=== PATIENT | female | born 1990 | race Caucasian/White ===

== ENCOUNTER → 2019-10-30 09:37 | Outpatient (CLI) | payer OTHER, SELFPAY ==
[2019-10-30 12:33] LABS: Progesterone Level 15.32 ng/mL (See Comment)
[2019-10-30 12:42] LABS: Prolactin 10.8 ng/mL; T4 Free Direct 1.08 ng/dL (0.76-1.46); Thyroid Stim Hormone (TSH) 1.58 uIU/mL (0.358-3.74)
== END ==
PROVIDERS: Visit Provider Obstetrics & Gynecology
DX: N93.9 Abnormal uterine and vaginal bleeding, unspecified (principal)
CPT/HCPCS: 36415; 84144; 84146; 84439; 84443

== ENCOUNTER → 2019-12-18 15:32 | Outpatient (CLI) | payer OTHER, SELFPAY ==
[2019-12-18 16:57] LABS: Absolute Lymphocyte Count 1.93 X10^3/uL (0.83-4.51); Absolute Neutrophil Count 2.8 X10^3/uL (2.0-7.7); Basophil# 0.02 X10^3/uL; Basophil% 0.4 % (0-1); Hematocrit 38.9 % (37-47); Lymphocyte # 1.93 X10^3/ul (4.0); Lymphocyte % 37.8 % (19-41); Mean Corp Hgb Conc 33.4 g/dL (32-36); Mean Corpuscular Hgb 30.4 pg (27.0-32.0); Mean Corpuscular Volume 91.1 fL (81-99); Mean Platelet Vol. 10.6 fl (6.2-12.0); Monocyte# 0.28 X10^3/uL; Monocyte% 5.5 % (0-10); NRBC Flagged by Analyzer 0 % (0-5); Neutrophil # 2.76 X10^3/uL (2.7-7.7); Neutrophil % 54.1 % (47-70); Platelet Count 287 K/mm3 (150-450); RBC Distribution Width CV 12.3 % (11.6-14.6); Red Blood Count 4.27 M/mm3 (4.2-5.4); White Blood Count 5.1 K/mm3 (4.4-11.0)
[2019-12-19 08:47] LABS: HIV - WCH Non-Reactive (Nonreactive); Hepatitis B Surface Antigen Non-Reactive (Nonreactive); Hepatitis C Antibody Non-Reactive (Nonreactive); Rubella IgG Reactive (Nonreactive)
[2019-12-20 01:21] LABS: Prenatal RPR NONREACTIVE (NONREACTIVE)
[2019-12-21 20:08] LABS: Chlamydia By Nucleic Acid AMP Negative (Negative)
[2019-12-21 21:52] LABS: Gonococcus By Nucleic Acid AMP Negative (Negative)
== END ==
PROVIDERS: Visit Provider Obstetrics & Gynecology
DX: Z34.81 Encounter for supervision of other normal pregnancy, first trimester (principal)
CPT/HCPCS: 36415; 85025; 86703; 86762; 86803; 87086; 87088; 87340; 87491; 87591

== ENCOUNTER → 2020-05-19 09:10 | Outpatient (CLI) | payer OTHER, SELFPAY ==
[2020-05-19 10:37] LABS: Hematocrit 36.7 % (37-47); Hemoglobin 12.4 g/dL (12.0-15.0); Mean Corp Hgb Conc 33.8 g/dL (32-36); Mean Corpuscular Hgb 31.4 pg (27.0-32.0); Mean Corpuscular Volume 92.9 fL (81-99); Mean Platelet Vol. 10.2 fl (6.2-12.0); Platelet Count 291 K/mm3 (150-450); RBC Distribution Width SD 44.5 fl (35.1-43.9); Red Blood Count 3.95 M/mm3 (4.2-5.4)
[2020-05-19 10:52] LABS: Glucose Challenge Gest 1H 50g 67 mg/dL (70-140)
== END ==
PROVIDERS: Visit Provider Obstetrics & Gynecology
DX: Z34.82 Encounter for supervision of other normal pregnancy, second trimester (principal)
CPT/HCPCS: 36415; 82950; 85027

== ENCOUNTER 2020-06-24 08:25 | Outpatient (CLI) | payer OTHER, SELFPAY ==
[2020-06-24 08:39] VITALS: BMI 33.9
[2020-06-24 08:47] VITALS: BP 133/71; PULSE 96; TEMP 35.9; O2SAT 98
--- NOTE | 2020-07-08 22:07 | OB.TRI.NOTE ---
HPI - General HPI Narrative FARHAD DORADO, is a 29 F 2 para 0010 @ 32 6/7 weeks gestation with decreased movement. PFSH Home Medications Fa 1 tab DAILY 06/24/20 [History Last Taken Unknown] famotidine [Pepcid] 20 mg PO BID 06/24/20 [History Last Taken Unknown] Allergy/AdvReac Type Severity Reaction Status Date / Time No Known Allergies Allergy Verified 06/24/20 08:45 NST FHR Rate Baby A Baseline: 140 Variability:: Moderate Accelerations:: 15 x 15 Decelerations:: None NST Reactive:: Yes FHR Category:: Category I Uterine Activity:: 0/10 Assessment & Plan (1) Decreased movement: QUALIFIERS: Fetus number: single or unspecified fetus Trimester: third trimester Qualified Code(s): O36.8130 - Decreased movements, third trimester, not applicable or unspecified (2) 32 weeks gestation of : PLAN: Reactive NST, Cat I FHR D/C home
== END 2020-06-24 09:20 | disposition home or self-care (01) ==
LOC: WPOUT 08:34 → WP 08:35
PROVIDERS: Referring Provider Obstetrics & Gynecology; Visit Provider Obstetrics & Gynecology
DX: O36.8130 Decreased fetal movements, third trimester, not applicable or unspecified (principal); Z3A.32 32 weeks gestation of pregnancy
CPT/HCPCS: 59025; 59050; 99218; G0378

== ENCOUNTER 2020-07-05 10:15 | Outpatient (CLI) | payer OTHER, SELFPAY ==
[2020-07-05 10:31] VITALS: BMI 34.0
[2020-07-05 10:34] VITALS: BP 129/81; PULSE 101
--- NOTE | 2020-07-05 11:08 | OB.TRI.HP_ITS ---
HPI - General HPI Narrative FARHAD DORADO, is a 29 F G2, P0 at 34 weeks and 3 days with JOAN: 08/13/2020 by LMP confirmed with 8-week ultrasound arrives with right-sided back pain that comes and goes. Patient has had this pain for several weeks but it has increased over time. Denies fevers, chills, chest pain, shortness of breath, nausea vomiting, right upper quadrant pain. Obstetric history: G1: SAB G2: Current Past medical history: Anxiety, depression, ADHD, asthma Medications: vitamin, promethazine Past surgical history: Colposcopy, D&C Allergies: Zoloft Family history: Aunt with breast cancer and aunt with cervical cancer Social history: Denies smoking, alcohol use, drug use Review of systems: Besides the above pertinent positives a full review of systems was performed and found to be negative Physical exam: Vitals: Blood pressure 129/81 pulse 101 General: Normal-appearing no acute distress HEENT: Normocephalic atraumatic no cervical of adenopathy Cardiac/respiratory: No use of accessory muscles, nonlabored breathing Abdomen: Overall soft, nontender, gravid. Negative Rovsing sign. No rebound tenderness or guarding. Overall patient with pain when movement is palpated. Uterus nontender. Back: Negative CVA tenderness bilaterally Pelvic exam: Per nursing cervical exam is closed thick and high Extremities: No peripheral edema normal peripheral pulses Psych: Normal affect normal demeanor nonpressured speech I performed bedside ultrasound: position transverse spine down head maternal left. Placenta fundal. MARYBEL subjectively normal. Noted for positive tone, movement, breathing. Biophysical profile 8 out of 8. At timing of ultrasound it was noted that with movement babies kicks at point of pain and timing of pain were noted. Assessment plan: 29-year-old G2, P0 at 34 weeks and 3 days arrives with right-sided pain no sign of appendicitis or pancreatitis with afebrile and negative exam findings. testing reassuring with ultrasound and heart rate tracing. Based on ultrasound findings pain related to movement, uterus otherwise nontender. position has been transverse for greater than a month. Pain likely secondary to position and persistent movement. Discussed exercise ball/birthing ball to sit for hip and spine positioning to improve chances for vertex position in the future. Discussed heating pad on back. Offered Flexeril if needed. Urine analysis to be sent, no signs of pyelonephritis with no fevers or CVA tenderness. To discharge home and follow-up on scheduled appointment 07/08/2020. [facility] Home Medications Fa 1 tab DAILY 06/24/20 [History Last Taken Unknown] famotidine [Pepcid] 20 mg PO BID 06/24/20 [History Last Taken Unknown] Allergy/AdvReac Type Severity Reaction Status Date / Time No Known Allergies Allergy Verified 06/24/20 08:45
[2020-07-05 11:56] VITALS: BP 121/65; PULSE 96
[2020-07-05 12:04] LABS: Mucous, Urine 0 SEEN /hpf (<or=2+); Red Blood Cells-Urine 0 SEEN /hpf (0-5); White Blood Cells 0 SEEN /hpf (0-5)
[2020-07-05 12:07] LABS: Color, Urine Yellow (Yellow); Glucose, Dipstick Normal (Normal); Ketone-Dipstick Negative (Negative); Leukocyte Esterase-Dipstick 25 /ul (Negative); Nitrite-Dipstick Negative (Negative); Occult Blood-Urine 250 /ul (Negative); Protein-Dipstick 15 mg/dl (Negative); Urine Bilirubin Dipstick Negative (Negative); Urine Clarity Clear (Clear); Urine Urobilinogen Normal (Normal)
[2020-07-05 12:27] LABS: Bacteria 1+ /hpf (None Seen); Squamous Epithelial Cells - UA 5-10 SEEN /hpf (5-10)
== END 2020-07-05 12:00 ==
LOC: WPOUT 10:26 → WP 10:27
PROVIDERS: Referring Provider Obstetrics & Gynecology; Visit Provider Obstetrics & Gynecology
DX: O26.893 Other specified pregnancy related conditions, third trimester (principal); M54.9 Dorsalgia, unspecified; Z3A.34 34 weeks gestation of pregnancy
CPT/HCPCS: 59025; 59050; 81001; 87086; 87088; 99218; G0378

== ENCOUNTER → 2020-07-16 17:12 | Outpatient (CLI) | payer OTHER, SELFPAY ==
[2020-07-05 10:31] VITALS: BMI 34.0
[2020-07-16 17:40] LABS: Hematocrit 38.6 % (37-47); Hemoglobin 13.2 g/dL (12.0-15.0); Mean Corp Hgb Conc 34.2 g/dL (32-36); Mean Corpuscular Hgb 30.9 pg (27.0-32.0); Mean Corpuscular Volume 90.4 fL (81-99); Platelet Count 325 K/mm3 (150-450); RBC Distribution Width CV 13.1 % (11.6-14.6); RBC Distribution Width SD 42.6 fl (35.1-43.9); Red Blood Count 4.27 M/mm3 (4.2-5.4); White Blood Count 8.2 K/mm3 (4.4-11.0)
[2020-07-16 17:49] LABS: Prothrombin Time (Protime)PT. 12.6 SECONDS (11.7-14.9)
[2020-07-16 18:14] LABS: Partial Thromboplast Time 27.4 Seconds (24.1-36.2)
[2020-07-16 18:33] LABS: AST(SGOT) 10 U/L (15-37); Alanine Aminotransfer ALT/SGPT 20 U/L (13-56); Creatinine, Serum 0.73 mg/dL (0.55-1.02); EST Glomerular Filtration Rate 100 mL/min (>60); Est Glom Filt Rate - Afr Amer 120 mL/min (>60); Uric Acid 3.8 mg/dL (2.6-6.0)
== END ==
LOC: LABSPEC 17:14 → LAB 17:26
PROVIDERS: PCP Family Medicine; Referring Provider Obstetrics & Gynecology; Visit Provider Obstetrics & Gynecology
DX: Z36.85 Encounter for antenatal screening for Streptococcus B (principal); O13.9 Gestational [pregnancy-induced] hypertension without significant proteinuria, unspecified trimester; Z3A.00 Weeks of gestation of pregnancy not specified
CPT/HCPCS: 36415; 82565; 84450; 84460; 84550; 85027; 85610; 85730; 87081

== ENCOUNTER 2020-08-06 00:15 | Inpatient (IN) | payer OTHER, SELFPAY ==
[2020-08-05] VITALS (7 sets, daily range): BP systolic 135–158; BP diastolic 71–87; PULSE 62–95; TEMP 36.2; O2SAT 98; BMI 34.9
[2020-08-05] MEDS: 0.9% Saline Lock 10 ML Syringe IV (23:05)
[2020-08-05 23:35] LABS: Protein, Urine (Random) 19.9 mg/dL (<11.9); Protein:Creat Ratio 337 mg/g CRE (0-200)
[2020-08-05 23:41] LABS: ALB/GLOB Ratio 0.7 RATIO (0.9-2.4); AST(SGOT) 9 U/L (15-37); Alanine Aminotransfer ALT/SGPT 13 U/L (13-56); Albumin, Serum 2.6 g/dL (3.2-5.0); Alkaline Phosphatase 85 U/L (45-117); Anion Gap 7 (5-15); BUN 11 mg/dL (7-18); BUN/Creat Ratio 15.3 RATIO (10-20); Calcium,Total 8.9 mg/dL (8.5-10.1); Chloride 106 mmol/L (98-107); Creatinine, Serum 0.72 mg/dL (0.55-1.02); EST Glomerular Filtration Rate 102 mL/min (>60); Est Glom Filt Rate - Afr Amer 123 mL/min (>60); Estimated Creatinine Clearance 99.56 ml/min; Globulin 3.9 g/dL (2.2-4.2); Glucose 75 mg/dL (74-106); LDH 131 U/L (84-246); Potassium 3.8 mmol/L (3.5-5.1); Protein, Total 6.5 g/dL (6.4-8.2); Sodium Level 138 mmol/L (136-145)
[2020-08-05] MEDS: Acetaminophen/Butalbital/Caffe 1 Tablet PO (23:47)
[2020-08-05 23:55] LABS: Absolute Neutrophil Count 5.3 X10^3/uL (2.0-7.7); Basophil# 0.03 X10^3/uL; Basophil% 0.4 % (0-1); Eosinophil# 0.13 X10^3/uL; Eosinophils% 1.6 % (0-5); Hematocrit 34.5 % (37-47); Hemoglobin 12.3 g/dL (12.0-15.0); Lymphocyte % 26.5 % (19-41); Mean Corp Hgb Conc 35.7 g/dL (32-36); Mean Corpuscular Hgb 31.5 pg (27.0-32.0); Mean Corpuscular Volume 88.5 fL (81-99); Mean Platelet Vol. 11.2 fl (6.2-12.0); Monocyte# 0.49 X10^3/uL; Monocyte% 5.9 % (0-10); NRBC Flagged by Analyzer 0 % (0-5); Neutrophil # 5.33 X10^3/uL (2.7-7.7); Neutrophil % 64.2 % (47-70); Platelet Count 283 K/mm3 (150-450); RBC Distribution Width CV 13.2 % (11.6-14.6); RBC Distribution Width SD 42.4 fl (35.1-43.9); White Blood Count 8.3 K/mm3 (4.4-11.0)
[2020-08-06] VITALS (46 sets, daily range): BP systolic 100–163; BP diastolic 56–97; PULSE 85–127; RESP 13–22; TEMP 35.9–37.1; O2SAT 96–100
--- NOTE | 2020-08-06 01:13 | PCM.HP.BLA ---
History and Physical Date of Admission: 08/06/20 Chief complaint: Headache History of present illness: 29-year-old G2, P0 at 39 weeks 0 days with JOAN: 08/13/2020 by LMP arrives with headache no visual changes. This headache has been unresolved with Tylenol and Fioricet. Denies chest pain, shortness of breath, nausea vomiting, right upper quadrant pain. Patient states good movement. Obstetric history: G1: SAB G2: Current Past medical history: Asthma, anxiety Medications: vitamin Past surgical history: Woodman teeth extraction Allergies: Zoloft Social history: Denies smoking, alcohol use, drug use Family history: Denies history DVT or PE Review of systems: Besides above pertinent positives a full review of systems was performed and found to be negative Physical exam: Vitals: Blood pressure 138/76 pulse 93 respiratory rate 16 temperature 97.7 SPO2 99% on room air General: Normal-appearing no acute distress HEENT: Normocephalic atraumatic no cervical lymphadenopathy Cardiac/respiratory: No use of accessory muscles, nonlabored breathing Abdomen: Soft, nontender, gravid Bedside ultrasound: Breech Extremities: No peripheral edema normal peripheral pulses Psych: Normal affect normal demeanor nonpressured speech Labs: White blood cell count 8.3 hemoglobin 12.3 hematocrit 34.5 platelets 283. Sodium 138 potassium 3.8 creatinine 0.72 AST 9 ALT 13 LDH 131. Urine protein creatinine ratio 0.33. O+ blood type Assessment and plan: 29-year-old G2, P0 at 39 weeks 0 days with preeclampsia with severe features based on unresolved headache. Patient with elevated blood pressures, nonpersistent severe range blood pressures, and proteinuria. Based on these findings educated the patient on preeclampsia with severe features and need for delivery. Based on breech presentation for primary section risk benefits alternatives discussed. Patient states understanding wish to proceed. All questions were answered consent was signed. We will start magnesium 6 g bolus at 2 g an hour, continue for 24 hours . For 2 g Ancef and 500 mg of azithromycin. Discussed with anesthesia.
[2020-08-06] MEDS: Magnesium Sulfate 4gm/100mL 4 GM/100 ML IV.SOLN. IV (01:20)
[2020-08-06] MEDS: Magnesium Sulfate 4gm/100mL 2 GM/50 ML IV.SOLN. IV (01:40)
[2020-08-06] MEDS: Cefazolin 2 GM in 0.9% Normal Saline 100 ML IV (01:40)
[2020-08-06] MEDS: Magnesium Sulfate 20 GM/500 ML BAG IV ×3 (01:50→19:55)
--- NOTE | 2020-08-06 02:25 | EX.PCM.OBRPT ---
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 Apgars 8/9. Normal uterus, tubes, and ovaries. Consent: Patient arrived with headache and elevated blood pressures along with proteinuria diagnosed with severe preeclampsia at term. Baby in breech presentation in need of primary section. Patient understands the risk of the procedure include but are not limited to visceral or vascular injury, prolonged hospitalization, blood loss and need for transfusion, reoperation. Patient states understanding wishes to proceed. All questions were answered consent was signed. Procedure: Patient was brought back to the OR where spinal anesthesia found to be adequate. 2 g of Ancef and 500 mg of azithromycin were given for infection prophylaxis. Patient was prepared and draped in a dorsal supine position with leftward tilt. A Pfannenstiel incision was made skin with a scalpel. The incision was carried down to the fascia with a scalpel. The fascia was excised and extended laterally. Inferior aspect of the fascia was grasped with a clamp and the underlying rectus and pyramidalis muscle were dissected off sharply with Pedro scissors. In a similar fashion the superior aspect the fascia was grasped and the underlying rectus muscle was dissected off sharply. The rectus muscle was dissected at the midline down to the level of pubic symphysis. Preperitoneal fatty tissue was noted and peritoneum was entered bluntly. Peritoneum was extended superiorly and inferiorly with good visualization of bladder. Bladder blade was inserted vesicouterine peritoneum was identified. Low transverse hysterotomy was made. Baby noted to be in breech presentation, delivered in standard breech fashion with ease. Cord was cut and clamped. Baby handed off to nursing. Placenta was delivered via cord traction and fundal massage. IV oxytocin was initiated to facilitate uterine contractions. Uterus was exteriorized and wiped out with dry laparotomy sponges in order to remove remaining placental membranes. Uterus was closed in continuous running fashion. Second layer was performed. Uterus placed back in the abdominal cavity. Good hemostasis was noted. Rectus muscles reapproximated with horizontal mattress sutures. Fascia was closed in continuous running fashion. Skin was closed in a subcuticular fashion. All counts correct x2. Patient tolerated procedure well was brought back to recovery in a stable condition.
[2020-08-06] MEDS: Lactated Ringers 1,000 ML 15 ML IV (02:33)
[2020-08-06] MEDS: Oxytocin 30 units/NS 500 ml 30 UNITS/500 ML IV.SOLN 167 UNITS IV (02:45)
[2020-08-06] MEDS: 0.9% Saline Lock 10 ML Syringe IV ×2 (03:13→21:11)
[2020-08-06] MEDS: Acetaminophen 500 MG Tablet 1000 MG PO ×3 (03:13→14:50)
[2020-08-06] MEDS: Ketorolac 30 MG/ML Syringe IV ×4 (03:13→21:11)
--- NOTE | 2020-08-06 05:21 | NURSING ---
see anesthesia flowsheet from OR for magnesium vital signs during initial 6 gram bolus. this RN took over performing vital signs for magnesium flowsheet when back in room after surgery at 0233.
--- NOTE | 2020-08-06 05:27 | NURSING ---
see anesthesia vital signs from OR
--- NOTE | 2020-08-06 05:30 | NURSING ---
see immediate post op assessment for urine amount. 800 cc clear, yellow urine.
[2020-08-06] MEDS: Senna/Docusate Sodium 1 Tablet PO (10:01)
[2020-08-06] MEDS: Enoxaparin 40 MG/0.4 ML Syringe SC (14:51)
--- NOTE | 2020-08-06 16:13 | NURSING ---
Called over to Dr. Evans office to discuss plan. Verbal order to d/c Mag at 0200- 24 hours post jakivieradry.
--- NOTE | 2020-08-06 19:30 | NURSING ---
Seizure pads on bed.
[2020-08-06] MEDS: Lactated Ringers 1,000 ML 50 ML IV (19:44)
--- NOTE | 2020-08-06 21:24 | NURSING ---
RN unable to give 2100 PO tylenol dose d/t x1 dose fioricet on 08/05 at 2347. If 2100 dose given, the amount exceeds 4000mg in 24 hours. Pharmacy called, next PO tylenol dose to be scheduled for 0000.
[2020-08-07] VITALS (11 sets, daily range): BP systolic 103–121; BP diastolic 57–68; PULSE 73–100; RESP 16–18; TEMP 36.3–36.8; O2SAT 96–98
[2020-08-07] MEDS: Acetaminophen 500 MG Tablet 1000 MG PO ×4 (00:02→18:03)
[2020-08-07] MEDS: Ibuprofen 600 MG Tablet PO ×4 (02:56→20:44)
[2020-08-07 05:42] LABS: Absolute Lymphocyte Count 1.38 X10^3/uL (0.83-4.51); Absolute Neutrophil Count 6.1 X10^3/uL (2.0-7.7); Basophil# 0.02 X10^3/uL; Basophil% 0.3 % (0-1); Eosinophil# 0.08 X10^3/uL; Hemoglobin 9.5 g/dL (12.0-15.0); Lymphocyte # 1.38 X10^3/ul (0.83-4.51); Lymphocyte % 17.3 % (19-41); Mean Corp Hgb Conc 33.9 g/dL (32-36); Mean Corpuscular Hgb 31.4 pg (27.0-32.0); Mean Corpuscular Volume 92.4 fL (81-99); Mean Platelet Vol. 10.3 fl (6.2-12.0); Monocyte# 0.43 X10^3/uL; Monocyte% 5.4 % (0-10); NRBC Flagged by Analyzer 0 % (0-5); Neutrophil # 6.05 X10^3/uL (2.7-7.7); Neutrophil % 75.5 % (47-70); Platelet Count 230 K/mm3 (150-450); RBC Distribution Width CV 13.6 % (11.6-14.6); RBC Distribution Width SD 45.5 fl (35.1-43.9); Red Blood Count 3.03 M/mm3 (4.2-5.4)
[2020-08-07 06:07] LABS: ALB/GLOB Ratio 0.7 RATIO (0.9-2.4); AST(SGOT) 11 U/L (15-37); Alanine Aminotransfer ALT/SGPT 10 U/L (13-56); Albumin, Serum 2.2 g/dL (3.2-5.0); Alkaline Phosphatase 69 U/L (45-117); Anion Gap 5 (5-15); BUN 10 mg/dL (7-18); BUN/Creat Ratio 12.3 RATIO (10-20); Calcium,Total 6.1 mg/dL (8.5-10.1); Chloride 104 mmol/L (98-107); Creatinine, Serum 0.81 mg/dL (0.55-1.02); EST Glomerular Filtration Rate 88 mL/min (>60); Est Glom Filt Rate - Afr Amer 106 mL/min (>60); Estimated Creatinine Clearance 88.49 ml/min; Globulin 3.2 g/dL (2.2-4.2); Glucose 82 mg/dL (74-106); LDH 196 U/L (84-246); Potassium 4.1 mmol/L (3.5-5.1); Protein, Total 5.4 g/dL (6.4-8.2); Sodium Level 136 mmol/L (136-145)
--- NOTE | 2020-08-07 07:05 | PCM.PN.OB ---
Subjective Subjective Pain is controlled, OOB, passing flatus. Reports lightheaded episode while toileting early this morning without recurrence. She ate food and it improved. c/o mild frontal headache. She denies rhinorrhea, sinus pressure, ear pain, vision changes or eye pressure. Objective Data Objective Data Vital Signs: Vital Signs Temp Pulse Resp BP Pulse Ox 97.8 F 85 18 108/57 L 98 08/07/20 04:15 08/07/20 04:15 08/07/20 04:15 08/07/20 04:15 08/07/20 04:15 Oxygen Delivery Method Room Air Weight: 92.4 kg Body Mass Index (BMI) 34.9 Intake & Output: Intake and Output for Last 24 Hours 08/05/20 08/06/20 08/07/20 23:59 23:59 23:59 Intake Total 3273.84 / 3323.84 717.50 / 717.50 Output Total 3705 / 3705 1000 / 1000 Balance -431.16 / -381.16 -282.50 / -282.50 Lab / Micro Data Result Diagrams: 08/07/20 05:35 08/08/20 06:05 Labs: Laboratory Results - last 24 hr 08/07/20 08/07/20 05:35 05:35 WBC 8.0 RBC 3.03 L Hgb 9.5 L Hct 28.0 L MCV 92.4 MCH 31.4 MCHC 33.9 D RDW Std Deviation 45.5 H RDW Coeff of Omkar 13.6 Plt Count 230 MPV 10.3 Immature Gran % (Auto) 0.500 Neut % (Auto) 75.5 H Lymph % (Auto) 17.3 L [place] % (Auto) 5.4 Eos % (Auto) 1.0 Baso % (Auto) 0.3 Absolute Neuts (auto) 6.1 Absolute Lymphs (auto) 1.38 Nucleated RBC % 0 Sodium 136 Potassium 4.1 Chloride 104 Carbon Dioxide 27.0 Anion Gap 5 BUN 10 Creatinine 0.81 Estim Creat Clear Calc 88.49 Est GFR (MDRD) Af Amer 106 Est GFR (MDRD) Non-Af 88 BUN/Creatinine Ratio 12.3 Glucose 82 Calcium 6.1 L* Total Bilirubin 0.30 AST 11 L ALT 10 L Alkaline Phosphatase 69 Lactate Dehydrogenase 196 Total Protein 5.4 L Albumin 2.2 L Globulin 3.2 Albumin/Globulin Ratio 0.7 L Micro: Microbiology 08/06/20 00:35 Mucosa - Nose SARS-CoV-2 Antigen (Rapid) - Final Physical Exam Const alert, oriented x3 and no apparent distress Resp normal respiratory effort, normal air movement and clear to auscultation bilaterally Cardio regular rate, regular rhythm, S1 normal heart sound and S2 normal heart sound GI normal to inspection, nondistended, normoactive bowel sounds, soft to palpation, non-tender and non-distended Manual OB Exam: other lochia scant Uterus Palpation: uterus fundus firm Extremity no calf tenderness Assessment & Plan (1) Delivery by section: PLAN: Routine postoperative care Rh positive, Rubella immune (2) Preeclampsia: PLAN: s/p magnesium Recently received tylenol for am headache If no improvement will give NSAID or Reglan No si/sx worsening preeclampsia and pt diuresing
[2020-08-07] MEDS: Senna/Docusate Sodium 1 Tablet PO (09:08)
[2020-08-07] MEDS: Enoxaparin 40 MG/0.4 ML Syringe SC (09:10)
[2020-08-08] VITALS (7 sets, daily range): BP systolic 118–136; BP diastolic 60–71; PULSE 67–75; RESP 18–20; TEMP 36.6–36.9; O2SAT 100
[2020-08-08] MEDS: Acetaminophen 500 MG Tablet 1000 MG PO ×3 (00:05→12:59)
[2020-08-08] MEDS: Ibuprofen 600 MG Tablet PO ×2 (02:32→09:28)
[2020-08-08 07:12] LABS: ALB/GLOB Ratio 0.7 RATIO (0.9-2.4); AST(SGOT) 11 U/L (15-37); Alanine Aminotransfer ALT/SGPT 10 U/L (13-56); Albumin, Serum 2.2 g/dL (3.2-5.0); Alkaline Phosphatase 64 U/L (45-117); Anion Gap 5 (5-15); BUN 11 mg/dL (7-18); BUN/Creat Ratio 16.2 RATIO (10-20); Calcium,Total 7.1 mg/dL (8.5-10.1); Chloride 108 mmol/L (98-107); Creatinine, Serum 0.68 mg/dL (0.55-1.02); EST Glomerular Filtration Rate 108 mL/min (>60); Est Glom Filt Rate - Afr Amer 131 mL/min (>60); Estimated Creatinine Clearance 105.41 ml/min; Globulin 3.2 g/dL (2.2-4.2); Glucose 73 mg/dL (74-106); LDH 187 U/L (84-246); Protein, Total 5.4 g/dL (6.4-8.2); Sodium Level 139 mmol/L (136-145)
--- NOTE | 2020-08-08 09:17 | DS.PCM_ITS ---
Providers Date of Admission: 08/06/20 Primary Care Physician: Dr. Amador Owens MD Reason For Visit: PRIMARY Diagnosis Discharge Diagnosis (1) Delivery by section: Status: Acute Plan: Routine postop care (2) Preeclampsia: Status: Acute Code(s): O14.90 - Unspecified pre-eclampsia, unspecified trimester Plan: Pt s/p magnesium 24h withno si/sx worsening Requests d/c home Will do home BPs tid, has sister who is slot service specialist assisting with care Si/sx preeclampsia reviewed Call to office on Tuesday to review BPs Medications at Discharge Home Medications Fa 1 tab DAILY 06/24/20 docusate sodium [Colace] 200 mg PO DAILY 08/05/20 ibuprofen 600 mg PO Q8H PRN PRN #30 tab 08/08/20 oxycodone 5 mg PO Q6H PRN 7 Days #20 tab 08/08/20 Hospital Course Operations section Procedures None Summary of Care Provided Hospital Course: 29yo admitted at 39 weeks gestation for scheduled section for breech presentation. The was uncomplicated, but she c/o headache and had elevated BP with proteinuria. She received IV magnesium x 24 hours. She continued to do well and was discharged to home on postoperative day #2. Physical Exam Const alert, oriented x3 and no apparent distress General Appearance: cooperative and comfortable HEENT normocephalic Resp Auscultation: clear to auscultation bilaterally Cardio regular rate, regular rhythm, S1 normal heart sound and S2 normal heart sound GI normal to inspection, nondistended, normoactive bowel sounds, soft to palpation and non-tender GI Narrative: incisional dressing c/d/i OB / External & Speculum: other Uterus Palpation: other OB Fundus firm and nontender Extremity no calf tenderness Weight / BMI Weight Weight: 92.4 kg Body Mass Index (BMI) 34.9 ABG / Lab / Microbiology Data Result Diagrams: 08/07/20 05:35 08/08/20 06:05 Laboratory: Laboratory Results - last 24 hr 08/08/20 06:05 Sodium 139 Potassium 4.0 Chloride 108 H Carbon Dioxide 26.0 Anion Gap 5 BUN 11 Creatinine 0.68 Estim Creat Clear Calc 105.41 Est GFR (MDRD) Af Amer 131 Est GFR (MDRD) Non-Af 108 BUN/Creatinine Ratio 16.2 Glucose 73 L Calcium 7.1 L Total Bilirubin 0.40 AST 11 L ALT 10 L Alkaline Phosphatase 64 Lactate Dehydrogenase 187 Total Protein 5.4 L Albumin 2.2 L Globulin 3.2 Albumin/Globulin Ratio 0.7 L Microbiology: Microbiology 08/06/20 00:35 Mucosa - Nose SARS-CoV-2 Antigen (Rapid) - Final D/C Instructions Discharge Diet: No restrictions Discharge Activity: May Shower May resume sexual activity in: 4-6 weeks Lifting Restricted to (Lbs): 10 Call your doctor if you observe: Fever of 101 or Higher, Using more than 1 pad per hour, Shortness of breath, Chest pain, Calf discomfort, Uncontrolled pain and - (Persistent or severe headache) Suture Line Care: Avoid Pulling/Pushing Remove Dressing in: 4 days Cleanse incision/area with: Soap & Water Please Follow Up With: Saima Cope MD When: 7-10 days for blood pressure check 6 weeks for visit Meaningful Use Info Meaningful Use Diagnoses (Choose all that apply): None applicable Discharge Plan Admission Admit Date/Time: 08/06/20 00:15 Primary Reason for Your Visit: section, preeclampsia Attending Provider: Prashant Gutiérrez Primary Care Provider: Amador Owens Instructions Patient Instructions: C Section Dc Additional Instructions / Restrictions: Call office for home BPs 160 systolic (top) or 110 diastolic (bottom number). Discharge Orders/Prescriptions Prescriptions: New ibuprofen 600 mg Tablet 600 mg PO Q8H PRN PRN (Reason: pain) Qty: 30 RF: 0 oxycodone 5 mg Tablet 5 mg PO Q6H PRN (Reason: severe pain) 7 Days Qty: 20 RF: 0 Continued Fa 1 tab DAILY RF: 0 docusate sodium [Colace] 100 mg Capsule 200 mg PO DAILY RF: 0 Discontinued famotidine [Pepcid] 20 mg Tablet 40 mg PO BID RF: 0 Referrals / Follow Up: Amador Owens MD [Primary Care Provider] - Disposition Disposition (needs filled in before D/C Order can be placed): Home, Self Care
[2020-08-08] MEDS: Senna/Docusate Sodium 1 Tablet PO (09:28)
[2020-08-08] MEDS: Enoxaparin 40 MG/0.4 ML Syringe SC (09:29)
--- NOTE | 2020-08-08 12:15 | CASEMGMT ---
Social Work Brief Assessment - Labor and Delivery Unit Patient [address]: [address] [place] [address], [place] [address] Phone number: [phone] Date of Referral/Notification: 08.06.2020 Time of Referral: [id number] Referred By: Dr. Prashant Gutiérrez Reason for Referral: Maternal history of depression and anxiety Date of Intervention: 08.08.2020 Time of Intervention: 1215 Informant: Medical record and mother of baby (MOB) Brittany Escobar; Father of baby (FOB) Ren Escobar also present for part of conversation. History: MOB is a 29 year old female, to the [facility] for the last 3 years. MOB is G2, P0 to 1 after delivering baby boy Milton Escobar on 07.10.2020. First was a SAB occurring in , and with subsequent D&C performed in the doctor's office. MOB with Pre-eclampsia this and treated with mag. Delivery of Milton via caesarian section. weight 2700 grams. Agpars 8 and 9 at 1 and 5 minutes of life. MOB has some college education and works at [employer]. FOB works at [employer]. MOB had history of depression, anxiety, and ADHD. MOB reports history of treatment with medications and that most of mood and anxiety issues stemmed from situational stress from a prior place of employment. No reports of substance use issues. No toxicology noted to have been performed this . MOB denies any domestic violence issues in this marriage. Assessment: Met with MOB and FOB together and then alone with the MOB. MOB and FOB both receptive to speaking with social contact worker, pleasant, cooperative and engaged in conversation. MOB and FOB report to have stable housing, transportation, all needed baby supplies, and to have adequate support. FOB will be at home to help, and then other family includes MOB's mom, sister, and FOB's mother. MOB reports first experience was a difficult one and increased some of MOB's anxiety. Educated family to decision and anxiety, resources provided, and reviewed risk factors. Information also provided on shaken baby prevention and safe sleeping. MOB and FOB indicated to have a positive connection with the baby. No voiced concerns by nursing staff regarding mother/child interactions or bonding. No voiced concerns with finances or need for additional social media marketing manager supports after home going. Plan: MOB and baby to home when ready. Resource information including local supports provided for mood and anxiety disorders. No further needs requested or indicated. -HAYDEN Davison, LOAD OUT WORKER
--- NOTE | 2020-08-08 18:52 | NURSING ---
1400- pt to take bp tid and call tuesday and give office update, to call office at any time she isnt feeling well. to follow up in the office in 2 weeks. pt voiced understanding.
== END 2020-08-08 14:00 | disposition home or self-care (01) | DRG 788 ==
LOC: WPOUT 00:19 → WP 00:20
PROVIDERS: Admitting Provider Obstetrics & Gynecology; PCP Family Medicine; Visit Provider Obstetrics & Gynecology
DX: O32.1XX0 Maternal care for breech presentation, not applicable or unspecified (principal); O14.14 Severe pre-eclampsia complicating childbirth; Z3A.39 39 weeks gestation of pregnancy; Z37.0 Single live birth
CPT/HCPCS: 59025; 59050; 76815; 80053; 82570; 83615; 84156; 85025; 86850; 86900; 86901; 87426; 99218; 99251; J7120; A4216; G0378; G0463; J2405

== ENCOUNTER 2021-05-27 07:59 | Outpatient (CLI) | payer OTHER, SELFPAY ==
[2021-05-27 10:16] LABS: Hematocrit 40.7 % (37-47); Hemoglobin 13.8 g/dL (12.0-15.0); Mean Corp Hgb Conc 33.9 g/dL (32-36); Mean Corpuscular Hgb 30.3 pg (27.0-32.0); Mean Corpuscular Volume 89.3 fL (81-99); Mean Platelet Vol. 10.7 fl (6.2-12.0); Platelet Count 313 K/mm3 (150-450); RBC Distribution Width SD 42.7 fl (35.1-43.9); Red Blood Count 4.56 M/mm3 (4.2-5.4); White Blood Count 4.2 K/mm3 (4.4-11.0)
[2021-05-27 10:37] LABS: Progesterone Level 0.28 ng/mL (See Comment); T3 Total - Triiodothyronine 1.25 ng/mL (0.6-1.81); Vitamin B12 355 pg/mL (211-911); Vitamin D,25 Hydroxy 46.4 ng/mL
[2021-05-27 10:38] LABS: Homocysteine 6.5 umol/L (3.2-10.7)
[2021-05-27 10:52] LABS: ALB/GLOB Ratio 0.9 RATIO (0.9-2.4); AST(SGOT) 31 U/L (15-37); Alanine Aminotransfer ALT/SGPT 44 U/L (13-56); Albumin, Serum 3.6 g/dL (3.2-5.0); Alkaline Phosphatase 55 U/L (45-117); Anion Gap 6 (5-15); BUN 14 mg/dL (7-18); CRP, High Sensitivity Cardiac 4.49 mg/L; Calcium,Total 8.7 mg/dL (8.5-10.1); Chloride 102 mmol/L (98-107); Cholesterol 252 mg/dL (200); Creatinine, Serum 0.88 mg/dL (0.55-1.02); EST Glomerular Filtration Rate 81 mL/min (>60); Est Glom Filt Rate - Afr Amer 97 mL/min (>60); Estradiol 26.1 pg/mL; Follicle Stimulating Hormone 5.9 mIU/mL; Globulin 3.9 g/dL (2.2-4.2); Glucose 84 mg/dL (74-106); High Density Lipoprotein 76 mg/dL; Iron 167 ug/dL (50-170); Magnesium 1.8 mg/dL (1.6-2.6); Potassium 3.7 mmol/L (3.5-5.1); Prolactin 7.6 ng/mL; Protein, Total 7.5 g/dL (6.4-8.2); Sodium Level 137 mmol/L (136-145); T4 Free Direct 1.07 ng/dL (0.76-1.46); T4 Total, Thyroxin 12.5 ug/dL (4.8-13.9); Thyroid Stim Hormone (TSH) 1.37 uIU/mL (0.358-3.74); Triglycerides 74 mg/dL; Very Low Density Lipoprotein 15 mg/dL (5-40)
[2021-06-01 13:08] LABS: Insulin Like Growth Factor 204 ng/mL (91-308); Testosterone, % Free 1.04 % (0.50-2.80); Testosterone, Free 0.36 ng/dL (0.10-0.85); Testosterone, Total 35 ng/dL (13-71)
== END 2021-05-27 23:59 | disposition home or self-care (01) ==
PROVIDERS: PCP Family Medicine; Referring Provider Nurse Practitioner Family; Visit Provider Nurse Practitioner Family
DX: R53.82 Chronic fatigue, unspecified (principal); M62.81 Muscle weakness (generalized)
CPT/HCPCS: 36415; 80053; 80061; 82306; 82533; 82607; 82627; 82670; 82746; 83001; 83002; 83036; 83090; 83540; 83735; 84144; 84146; 84270; 84305; 84402; 84403; 84436; 84439; 84443; 84480; 85027; 86141; 82626

== ENCOUNTER → 2021-07-13 | Outpatient (CLI) | payer OTHER, SELFPAY ==
[2021-07-20 11:26] LABS: HPV Genotype 16, Aptima Negative (Negative)
[2021-07-20 18:08] LABS: HPV APTIMA, High Risk Positive (Negative); HPV Genotype 18,45 Aptima Negative (Negative)
== END | disposition home or self-care (01) ==
LOC: LABSPEC 09:22
PROVIDERS: PCP Family Medicine; Visit Provider Obstetrics & Gynecology
DX: Z12.4 Encounter for screening for malignant neoplasm of cervix (principal)
CPT/HCPCS: 87624; 88175; G0145

== ENCOUNTER 2022-01-06 15:52 | Emergency (ER) | payer OTHER, SELFPAY ==
[2022-01-06 15:53] VITALS: BP 105/68; PULSE 120; RESP 18; TEMP 36.6; O2SAT 100; BMI 27.8
--- NOTE | 2022-01-06 18:10 | EDS_ITS ---
HPI History of Present Illness Chief Complaint: Nausea/Vomiting/Diarrhea Narrative Narrative: Patient presents with nausea and vomiting for a few days, she is 7 weeks and was given antiemetics by PCP. She continues to have quite a bit of nausea and vomiting and she feels lightheaded when she stands up. No fevers or chills, she has no abdominal pain. She has no vaginal bleeding. No dysuria or hematuria PFSH [facility] Medical History (Updated 01/06/22 @ 19:[address] Iam Rogers MD) Anxiety Asthma delivery delivered Depression Headache Home Medications Fa 1 tab DAILY 06/24/20 [History Last Taken 08/05/20] docusate sodium 100 mg capsule (Colace) 200 mg PO DAILY constipation 08/05/20 [History Last Taken 08/04/20] ibuprofen 600 mg tablet 600 mg PO Q8H PRN PRN pain #30 tabs 08/08/20 [Rx Last Taken Unknown] oxycodone 5 mg tablet 5 mg PO Q6H PRN severe pain 7 days #20 tabs 08/08/20 [Rx Last Taken Unknown] cephalexin 500 mg capsule 500 mg PO Q6 #40 caps 01/06/22 [Rx Last Taken Unknown] ondansetron 4 mg disintegrating tablet 4 mg PO Q8H #5 tabs 01/06/22 [Rx Last Taken Unknown] promethazine 12.5 mg tablet 12.5 mg PO DAILY 01/06/22 [History Last Taken Unknown] Allergy/AdvReac Type Severity Reaction Status Date / Time sertraline [From Zoloft] AdvReac Other Verified 01/06/22 15:53 Surgical History History of surgery Social History Smoking Status: Never smoker ROS ROS ED ROS Narrative Past medical history: Reviewed, G2, P1, history of preeclampsia Medications: Reviewed Social history: Noncontributory Review of systems: All systems negative except as indicated General: No fever Eyes: No visual changes ENT: No upper airway congestion, normal voice Neck: No neck pain Cardiovascular: No chest pain Respiratory: No shortness of breath or cough Gastrointestinal: No abdominal pain. There is nausea vomiting as in HPI Genitourinary: No dysuria Musculoskeletal: Denies myalgias no difficulty with ambulation Skin: No rash Neurological: No memory loss, confusion or any focal weakness Psych: No recent behavioral changes Hematologic: No easy bleeding or easy bruising EXAM Physical Exam Narrative Exam Narrative: Physical exam General: Well nourished, Well developed, No Acute Distress Head: Normocephalic, Atraumatic Eyes: Conjunctiva not pale ENT: Dry mucous membranes Neck: Supple, Nontender, No lymphadenopathy Cardiovascular: Regular rate, Regular rhythm Respiratory: No distress, CTA bilaterally Abdomen: Soft, Nontender, Nondistended : Deferred Back: Nontender, Normal Inspection. Negative for: CVA tenderness Extremities: Nontender, No edema Skin: Normal color, No rash Neurological: Alert, Normal Strength, Normal Sensation Psychological: Normal affect Const Vital Signs: 01/06/22 15:53 01/06/22 19:06 Temperature 97.8 F Temperature Source Temporal Pulse Rate 120 H 112 H Respiratory Rate 18 16 Blood Pressure 105/68 Blood Pressure Mean 80 Pulse Ox 100 100 Oxygen Delivery Method Room Air Room Air MDM MDM MDM Narrative Medical decision making narrative: Patient has ketones in her urine a slight UTI. I will treat it. She also received fluids and antiemetics and significantly improved. She can follow-up with her OB. If anything changes she is to return. Lab Data Labs: Laboratory Results - last 24 hr 01/06/22 01/06/22 01/06/22 17:13 17:13 17:15 WBC 10.8 RBC 4.47 Hgb 13.6 Hct 40.1 MCV 89.7 MCH 30.4 MCHC 33.9 RDW Std Deviation 42.4 RDW Coeff of Omkar 12.9 Plt Count 298 MPV 11.0 Immature Gran % (Auto) 0.600 Neut % (Auto) 84.0 H Lymph % (Auto) 10.1 L Turner % (Auto) 4.9 Eos % (Auto) 0.2 Baso % (Auto) 0.2 Absolute Neuts (auto) 9.1 H Absolute Lymphs (auto) 1.09 Nucleated RBC % 0 Sodium 138 Potassium 3.6 Chloride 104 Carbon Dioxide 26.0 Anion Gap 8 BUN 7 Creatinine 0.69 Estim Creat Clear Calc 102.01 Est GFR (MDRD) Af Amer 128 Est GFR (MDRD) Non-Af 106 BUN/Creatinine Ratio 10.2 Glucose 99 Calcium 9.2 Total Bilirubin 0.60 AST 5 L ALT 14 Alkaline Phosphatase 50 Total Protein 7.4 Albumin 3.7 Globulin 3.7 Albumin/Globulin Ratio 1.0 Urine Color Yellow Urine Clarity Cloudy Urine pH 8.0 Ur Specific Douglas 1.015 Urine Protein 15 H Urine Glucose (UA) Normal Urine Ketones 50 H Urine Occult Blood Negative Urine Nitrite Negative Urine Bilirubin Negative Urine Urobilinogen Normal Ur Leukocyte Esterase 100 H Urine RBC 0 SEEN Urine WBC 0-5 SEEN Ur Squamous Epith Cells 5-10 SEEN Amorphous Sediment 1+ Urine Bacteria 2+ Urine Mucus 0 SEEN Discharge Plan Triage Chief Complaint: Nausea/Vomiting/Diarrhea ED Provider: Iam Rogers Dx/Rx/DC Orders Clinical Impression: Hyperemesis gravidarum, Dehydration, UTI (urinary tract infection) Instructions: Urinary Tract Infections in Women, Dehydration, ED Hyperemesis Gravidarum Prescriptions: New ondansetron 4 mg tablet,disintegrating 4 mg PO Q8H Qty: 5 0RF cephalexin 500 mg capsule 500 mg PO Q6 Qty: 40 0RF No Action Fa 1 tab DAILY docusate sodium [Colace] 100 mg Capsule 200 mg PO DAILY ibuprofen 600 mg Tablet 600 mg PO Q8H PRN PRN (Reason: pain) Qty: 30 0RF oxycodone 5 mg Tablet 5 mg PO Q6H PRN (Reason: severe pain) 7 Days Qty: 20 0RF promethazine 12.5 mg tablet 12.5 mg PO DAILY Label Comments: TAKE 1 TABLET BY MOUTH EVERY 6 HOURS NEEDED FOR NAUSEA Primary Care Provider: Amador Owens Referrals: Amador Owens MD [Primary Care Provider] - 3-5 Days Disposition Disposition: Home, Self Care
[2022-01-06] MEDS: Ondansetron 4 MG/2 ML Vial IV (18:17)
[2022-01-06] MEDS: Lactated Ringers 1,000 ML 999 ML IV (18:17)
[2022-01-06] MEDS: 0.9% Normal Saline 1,000 ML 999 ML IV (18:22)
[2022-01-06 18:25] LABS: Mucous, Urine 0 SEEN /hpf (<or=2+); Red Blood Cells-Urine 0 SEEN /hpf (0-5)
[2022-01-06 18:28] LABS: Absolute Lymphocyte Count 1.09 X10^3/uL (0.83-4.51); Absolute Neutrophil Count 9.1 X10^3/uL (2.0-7.7); Basophil# 0.02 X10^3/uL; Basophil% 0.2 % (0-1); Eosinophil# 0.02 X10^3/uL; Eosinophils% 0.2 % (0-5); Hematocrit 40.1 % (37-47); Hemoglobin 13.6 g/dL (12.0-15.0); Lymphocyte # 1.09 X10^3/ul (0.83-4.51); Lymphocyte % 10.1 % (19-41); Mean Corp Hgb Conc 33.9 g/dL (32-36); Mean Corpuscular Hgb 30.4 pg (27.0-32.0); Mean Corpuscular Volume 89.7 fL (81-99); Monocyte# 0.53 X10^3/uL; Monocyte% 4.9 % (0-10); NRBC Flagged by Analyzer 0 % (0-5); Neutrophil # 9.07 X10^3/uL (2.7-7.7); Platelet Count 298 K/mm3 (150-450); RBC Distribution Width CV 12.9 % (11.6-14.6); RBC Distribution Width SD 42.4 fl (35.1-43.9); Red Blood Count 4.47 M/mm3 (4.2-5.4); White Blood Count 10.8 K/mm3 (4.4-11.0)
[2022-01-06 18:29] LABS: Color, Urine Yellow (Yellow); Glucose, Dipstick Normal (Normal); Ketone-Dipstick 50 mg/dl (Negative); Leukocyte Esterase-Dipstick 100 /ul (Negative); Nitrite-Dipstick Negative (Negative); Occult Blood-Urine Negative /ul (Negative); Protein-Dipstick 15 mg/dl (Negative); Specific Gravity, Urine 1.015 (1.002-1.030); Urine Bilirubin Dipstick Negative (Negative); Urine Clarity Cloudy (Clear); Urine Urobilinogen Normal (Normal)
[2022-01-06 18:35] LABS: Amorphous Sediment 1+; Bacteria 2+ /hpf (None Seen); Squamous Epithelial Cells - UA 5-10 SEEN /hpf (5-10); White Blood Cells 0-5 SEEN /hpf (0-5)
[2022-01-06 18:45] LABS: AST(SGOT) 5 U/L (15-37); Alanine Aminotransfer ALT/SGPT 14 U/L (13-56); Albumin, Serum 3.7 g/dL (3.2-5.0); Alkaline Phosphatase 50 U/L (45-117); Anion Gap 8 (5-15); BUN 7 mg/dL (7-18); BUN/Creat Ratio 10.2 RATIO (10-20); Calcium,Total 9.2 mg/dL (8.5-10.1); Chloride 104 mmol/L (98-107); Creatinine, Serum 0.69 mg/dL (0.55-1.02); EST Glomerular Filtration Rate 106 mL/min (>60); Est Glom Filt Rate - Afr Amer 128 mL/min (>60); Estimated Creatinine Clearance 102.01 ml/min; Globulin 3.7 g/dL (2.2-4.2); Glucose 99 mg/dL (74-106); Potassium 3.6 mmol/L (3.5-5.1); Protein, Total 7.4 g/dL (6.4-8.2); Sodium Level 138 mmol/L (136-145)
[2022-01-06 19:06] VITALS: PULSE 112; RESP 16; O2SAT 100
[2022-01-06] MEDS: Ceftriaxone 1 GM/50 ML BAG IV (19:12)
[2022-01-06] MEDS: Dext 5%-0.45% NS 1,000 ML 999 ML IV (19:12)
[2022-01-06 20:49] VITALS: PULSE 98; RESP 18; O2SAT 97
== END 2022-01-06 20:49 | disposition home or self-care (01) ==
PROVIDERS: Emergency Provider Emergency Medicine; PCP Family Medicine; Visit Provider Emergency Medicine
DX: O21.1 Hyperemesis gravidarum with metabolic disturbance (principal); O23.41 Unspecified infection of urinary tract in pregnancy, first trimester; Z3A.01 Less than 8 weeks gestation of pregnancy; E86.0 Dehydration
CPT/HCPCS: 80053; 81001; 85025; 87086; 87088; 96361; 96365; 96375; 99283; J7030; J7120; A4216; J2405; J7799

== ENCOUNTER → 2022-01-21 | Outpatient (CLI) | payer OTHER, SELFPAY ==
[2022-01-21 11:49] LABS: Absolute Lymphocyte Count 1.92 X10^3/uL (0.83-4.51); Absolute Neutrophil Count 4.1 X10^3/uL (2.0-7.7); Basophil# 0.02 X10^3/uL; Basophil% 0.3 % (0-1); Eosinophil# 0.06 X10^3/uL; Eosinophils% 0.9 % (0-5); Hematocrit 40.1 % (37-47); Hemoglobin 14.1 g/dL (12.0-15.0); Lymphocyte # 1.92 X10^3/ul (0.83-4.51); Lymphocyte % 29.7 % (19-41); Mean Corp Hgb Conc 35.2 g/dL (32-36); Mean Corpuscular Hgb 31.2 pg (27.0-32.0); Mean Corpuscular Volume 88.7 fL (81-99); Mean Platelet Vol. 10.7 fl (6.2-12.0); Monocyte# 0.32 X10^3/uL; Monocyte% 4.9 % (0-10); NRBC Flagged by Analyzer 0 % (0-5); Neutrophil # 4.13 X10^3/uL (2.7-7.7); Neutrophil % 63.9 % (47-70); Platelet Count 331 K/mm3 (150-450); RBC Distribution Width CV 12.5 % (11.6-14.6); RBC Distribution Width SD 40.9 fl (35.1-43.9); Red Blood Count 4.52 M/mm3 (4.2-5.4); White Blood Count 6.5 K/mm3 (4.4-11.0)
[2022-01-21 13:02] LABS: HIV - WCH Non-Reactive (Nonreactive); Hepatitis B Surface Antigen Non-Reactive (Nonreactive); Hepatitis C Antibody Non-Reactive (Nonreactive); Rubella IgG Reactive (Nonreactive); Syphilis Antibodies Non-reactive
[2022-01-23 07:07] LABS: Chlamydia By Nucleic Acid AMP Negative (Negative)
[2022-01-23 14:29] LABS: Gonococcus By Nucleic Acid AMP Negative (Negative)
[2022-01-24 15:33] LABS: V-Zoster IgG (Immunity) 1004 index (Immune >165)
== END | disposition home or self-care (01) ==
LOC: WOBLAB 11:01
PROVIDERS: PCP Family Medicine; Visit Provider Obstetrics & Gynecology
DX: Z34.81 Encounter for supervision of other normal pregnancy, first trimester (principal)
CPT/HCPCS: 36415; 85025; 86703; 86762; 86780; 86787; 86803; 87086; 87088; 87340; 87491; 87591

== ENCOUNTER → 2022-05-20 | Outpatient (CLI) | payer OTHER, SELFPAY ==
[2022-05-20 11:36] LABS: Absolute Lymphocyte Count 1.43 X10^3/uL (0.83-4.51); Absolute Neutrophil Count 4.4 X10^3/uL (2.0-7.7); Basophil# 0.02 X10^3/uL; Basophil% 0.3 % (0-1); Eosinophil# 0.15 X10^3/uL; Eosinophils% 2.3 % (0-5); Hematocrit 36.7 % (37-47); Hemoglobin 12.4 g/dL (12.0-15.0); Lymphocyte # 1.43 X10^3/ul (0.83-4.51); Lymphocyte % 22.4 % (19-41); Mean Corp Hgb Conc 33.8 g/dL (32-36); Mean Corpuscular Hgb 31.7 pg (27.0-32.0); Mean Corpuscular Volume 93.9 fL (81-99); Mean Platelet Vol. 10.7 fl (6.2-12.0); Monocyte# 0.38 X10^3/uL; Monocyte% 5.9 % (0-10); NRBC Flagged by Analyzer 0 % (0-5); Neutrophil # 4.38 X10^3/uL (2.7-7.7); Neutrophil % 68.6 % (47-70); Platelet Count 295 K/mm3 (150-450); RBC Distribution Width CV 13.7 % (11.6-14.6); RBC Distribution Width SD 46.5 fl (35.1-43.9); Red Blood Count 3.91 M/mm3 (4.2-5.4); White Blood Count 6.4 K/mm3 (4.4-11.0)
[2022-05-20 11:55] LABS: Glucose Challenge Gest 1H 50g 77 mg/dL (70-140)
[2022-05-20 12:35] LABS: Syphilis Antibodies Non-reactive
== END | disposition home or self-care (01) ==
LOC: WOBLAB 10:15
PROVIDERS: PCP Family Medicine; Visit Provider Obstetrics & Gynecology
DX: Z34.82 Encounter for supervision of other normal pregnancy, second trimester (principal)
CPT/HCPCS: 36415; 82950; 85025; 86780

== ENCOUNTER → 2022-06-08 | Outpatient (CLI) | payer OTHER, SELFPAY | END | disposition home or self-care (01) | LOC: LABSPEC 13:39 | PROVIDERS: PCP Family Medicine; Visit Provider Student in an Organized Health Care Education/Training Program | DX: N39.0 Urinary tract infection, site not specified (principal) | CPT/HCPCS: 87086; 87088 ==

== ENCOUNTER → 2022-07-13 | Outpatient (CLI) | payer OTHER, SELFPAY ==
--- NOTE | 2022-07-13 15:34 | VDLE_ITS ---
Reason For Study: Bilateral leg pain RIGHT LEFT GSV is normal. GSV is normal. CFV is compressible, spontaneous, phasic, CFV is compressible, spontaneous, phasic, competent and demonstrates normal competent, and demonstrates normal augmentation. augmentation. FV is compressible, spontaneous, phasic, FV is compressible, spontaneous, phasic, competent and demonstrates normal competent and demonstrates normal augmentation. augmentation. POP V is compressible, spontaneous, phasic, POP V is compressible, spontaneous, phasic, competent and demonstrates normal competent and demonstrates normal augmentation. augmentation. T/P Trunk is compressible. T/P Trunk is compressible. PTV is compressible. PTV is compressible. RT PerV is compressible. LT PerV is compressible. Procedure This is a venous duplex using B-mode, color flow and spectral Doppler. Exam performed in department. A preliminary report was called and/or faxed to Dr. Yanet Gutiérrez. VL/Venous Duplex US - Enoc Extrem Interpretation Summary Deep veins of the bilateral lower extremities are patent and compressible segme ntally. There is no evidence of bilateral lower extremity deep vein thrombosis. The bilateral great saphenous veins appear patent and compressible segmentally. Ordering Physician: Prashant Gutiérrez Referring Physician: Mohamud Owens Performed By: Brooklynn Harman RVT
== END | disposition home or self-care (01) ==
PROVIDERS: PCP Family Medicine; Referring Provider Obstetrics & Gynecology; Visit Provider Obstetrics & Gynecology
DX: Z34.83 Encounter for supervision of other normal pregnancy, third trimester (principal); M79.661 Pain in right lower leg; M79.662 Pain in left lower leg
CPT/HCPCS: 93970

== ENCOUNTER → 2022-08-04 | Outpatient (CLI) | payer OTHER, SELFPAY ==
[2022-08-04 10:51] LABS: Hematocrit 36.2 % (37-47); Hemoglobin 12.4 g/dL (12.0-15.0); Mean Corp Hgb Conc 34.3 g/dL (32-36); Mean Corpuscular Hgb 31.1 pg (27.0-32.0); Mean Corpuscular Volume 90.7 fL (81-99); Mean Platelet Vol. 10.4 fl (6.2-12.0); Platelet Count 278 K/mm3 (150-450); RBC Distribution Width CV 14.3 % (11.6-14.6); RBC Distribution Width SD 46.8 fl (35.1-43.9); Red Blood Count 3.99 M/mm3 (4.2-5.4); White Blood Count 8.2 K/mm3 (4.4-11.0)
== END | disposition home or self-care (01) ==
LOC: WOBLAB 10:28
PROVIDERS: PCP Family Medicine; Visit Provider Obstetrics & Gynecology
DX: Z34.83 Encounter for supervision of other normal pregnancy, third trimester (principal); Z36.85 Encounter for antenatal screening for Streptococcus B
CPT/HCPCS: 36415; 85027; 87081

== ENCOUNTER 2022-08-08 00:50 | Outpatient (CLI) | payer OTHER, SELFPAY ==
[2022-08-08 01:11] VITALS: BP 132/78; PULSE 108; PULSE 96; TEMP 36.4; O2SAT 98
[2022-08-08 01:13] VITALS: BMI 35.2
--- NOTE | 2022-08-11 14:46 | OB.TRI.NOTE ---
HPI - General General Date of Service: 08/08/22 HPI Narrative FARHAD DORADO, is a 31 F who presents with pelvic pressure PFSH PFSH Medical History ADHD Allergies Anxiety Asthma delivery delivered Depression Headache History of depression Home Medications Fa 1 tab DAILY 06/24/20 [History Last Taken 08/05/20] famotidine 20 mg tablet (Pepcid AC) 20 mg PO BID 07/01/22 [History Last Taken Unknown] Allergy/AdvReac Type Severity Reaction Status Date / Time sertraline [From Zoloft] AdvReac Other Verified 08/08/22 01:58 Family History Other Anxiety Depression Diabetes Hypertension Skin cancer Surgical History History of surgery Social History Smoking Status: Never smoker alcohol intake: current details: one drink a month substance use type: does not use what type of physical activity do you participate in: walking History Elective abortions Hx Para 0 Spontaneous abortions Hx # Term Pregnancies Ectopic pregnancies Hx # Pregnancies Multiple births # of living children Assessment & Plan (1) : PLAN: Called by nursing patient arrived to triage with pelvic pressure given orders for nursing for cervical exam. Informed by nursing few contractions overall comfortable cervical exams no signs of labor. Given orders for 2-hour repeat cervical exam. No signs of labor discussed with nursing okay for prolonged monitoring if patient uncomfortable versus home monitoring patient elects for home monitoring per nursing. Okay to discharge home and follow-up at scheduled appointments
== END 2022-08-08 02:01 | disposition home or self-care (01) ==
LOC: WPOUT 00:55 → WP 00:56
PROVIDERS: PCP Family Medicine; Visit Provider Obstetrics & Gynecology
DX: O99.891 Other specified diseases and conditions complicating pregnancy (principal); R10.2 Pelvic and perineal pain; Z3A.00 Weeks of gestation of pregnancy not specified
CPT/HCPCS: 59025; 59050; 99221; G0378

== ENCOUNTER 2022-08-25 04:56 | Inpatient (IN) | payer OTHER, SELFPAY ==
[2022-08-25] VITALS (16 sets, daily range): BP systolic 112–152; BP diastolic 65–87; PULSE 70–104; RESP 15–19; TEMP 36–36.8; O2SAT 95–100; BMI 35.4
--- NOTE | 2022-08-25 | IMM_PTH ---
PATIENT: FARHAD DORADO LOC: WP U#:[id number] AGE/SX: 31/F ROOM: WP005 RE08/25/[address]: Dr. Prashant Gutiérrez MD : 1990 BED: 1 DIS: 08/26/2022 SPEC #: [id number] RECD: 08/26/22 13:17 STATUS: ANNETTE REQ #: [id number] RODERICK: 08/25/22 00:[address]: Prashant Gutiérrez DEPT: IMMUNOHISTOCHEMISTRY RECD BY: Celia Kramer ENTERED: 08/26/22 13:18 SP TYPE: IMMUNO OTHR DR: Dr. Amador Owens MD Tissues: Fallopian tube Procedures: Ottoniel Ret (add) CK7 (add) CK8 (add) Vimentin (add) Pankeratin (initial) PHYSICIAN & INSTITUTION [place] [id number] SPECIMEN INFORMATION: Tissue Source: Fallopian tubes Clinical Info: Sterilization Specimen Number: [id number] #[id number] CPT code: 77631, 99408 x4 METHODOLOGY: Deparaffinized sections of prefer/formalin-fixed tissue or PAP/DQ stained slides are incubated with monoclonal/polyclonal antibodies/oligonucleotide probes. Localization is made via biotin free immunoperoxidase method. Appropriate controls are performed and reacted as expected. Results on target cell population are indicated in the following table: RESULTS: ANTIBODY / CLONE RESULT Block 2 AE1-3 (AE1/AE3/PCK26) positive CK7 (OV-TL12/30) positive CK8 (13xefvN12) positive Vimentin (V9) positive CALRET (polyclonal) positive These tests were developed and their performance characteristics determined by [facility]. They may not have been cleared or approved by the U.S. Food and Drug Administration. The FDA has determined that such clearance or approval is not necessary. The above immunohistochemical/dualISH markers are ordered and reviewed by the Pathologist. INTERPRETATION: Bilateral fallopian tubes, salpingectomy: Benign mesothelial cyst. SJ:harriett 08/27/2022
[2022-08-25] MEDS: Lactated Ringers 1,000 ML 999 ML IV (05:30)
[2022-08-25 05:42] LABS: Absolute Lymphocyte Count 2.18 X10^3/uL (0.83-4.51); Absolute Neutrophil Count 4.2 X10^3/uL (2.0-7.7); Basophil# 0.04 X10^3/uL; Basophil% 0.6 % (0-1); Eosinophils% 1.4 % (0-5); Hematocrit 36.9 % (37-47); Hemoglobin 12.2 g/dL (12.0-15.0); Lymphocyte # 2.18 X10^3/ul (0.83-4.51); Lymphocyte % 31.5 % (19-41); Mean Corp Hgb Conc 33.1 g/dL (32-36); Mean Corpuscular Volume 90.7 fL (81-99); Mean Platelet Vol. 11.2 fl (6.2-12.0); Monocyte# 0.39 X10^3/uL; Monocyte% 5.6 % (0-10); NRBC Flagged by Analyzer 0.3 % (0-5); Neutrophil # 4.16 X10^3/uL (2.7-7.7); Neutrophil % 60.3 % (47-70); Platelet Count 287 K/mm3 (150-450); RBC Distribution Width CV 14.6 % (11.6-14.6); RBC Distribution Width SD 47.9 fl (35.1-43.9); Red Blood Count 4.07 M/mm3 (4.2-5.4); White Blood Count 6.9 K/mm3 (4.4-11.0)
[2022-08-25] MEDS: Acetaminophen 500 MG Tablet 1000 MG PO ×3 (05:46→19:22)
[2022-08-25] MEDS: Lactated Ringers 1,000 ML 150 ML IV (05:47)
[2022-08-25 06:43] LABS: AST(SGOT) 16 U/L (15-37); Alanine Aminotransfer ALT/SGPT 13 U/L (13-56); Creatinine, Serum 1.07 mg/dL (0.55-1.02); EST Glomerular Filtration Rate 63 mL/min (>60); Est Glom Filt Rate - Afr Amer 77 mL/min (>60); Estimated Creatinine Clearance 65.78 ml/min; Uric Acid 5.2 mg/dL (2.6-6.0)
[2022-08-25 06:58] LABS: Protein, Urine (Random) 8.5 mg/dL (<11.9); Protein:Creat Ratio 234 mg/g CRE (0-200)
[2022-08-25] MEDS: Sodium Citrate/Citric Acid 30 ML UDC PO (07:15)
--- NOTE | 2022-08-25 07:27 | PCM.HP.BLA ---
History and Physical Date of Admission: 08/25/22 Chief complaint: Repeat section bilateral tubal ligation History present illness: 31-year-old G3, P1 at 39 weeks and 5 days with JOAN 08/27/2022 arrives for repeat section bilateral tubal ligation. Denies headache, vision change, chest pain, shortness of breath, nausea vomit, right upper quadrant pain. Patient states good movement. is complicated by history of section, BMI 35, anxiety depression Obstetric history: G1: SAB G2: 39-week primary section male 5 pounds 15 ounces G3: Current Past medical history: Anxiety depression Medications: vitamin Allergies: Zoloft Past surgical history: section, wisdom teeth extraction Family history: Denies history DVT or PE Social history: Denies smoking, coos, drug use Review of systems: Besides above pertinent positives a full review of systems was performed and found to be negative Physical exam: Vitals: Blood pressure 152/83 pulse 104 respiratory rate 15 temperature 98.3 ?F SPO2 90% on room air General: Normal-appearing no acute distress HEENT: Normocephalic/atraumatic no cervical of adenopathy Cardiac/respiratory: No use of accessory muscles, nonlabored breathing Abdomen: Soft, nontender, gravid Extremities: No peripheral edema normal peripheral pulses Psych: Normal affect, demeanor nonpressured speech Labs: White blood cell count 6.9 hemoglobin 12.2 hematocrit 36.9% platelets 287. Creatinine 1.07 AST 16 ALT 13 urine protein creatinine ratio 0.234. Blood type O+ antibody negative Assessment plan: 31-year-old G3, P1 at 39 weeks and 5 days for repeat section bilateral tubal ligation. Educated patient on risks of procedure include but are not limited to visceral vascular injury, prolonged hospitalization, blood loss need for transfusion, reoperation. Patient state understanding wish to proceed. All questions were answered and consent was signed. For 2 g Ancef. Called by nursing prior to surgery with elevated blood pressures given orders for hellp labs. We will continue to monitor blood pressures otherwise asymptomatic
[2022-08-25] MEDS: Cefazolin 2 GM in 0.9% Normal Saline 100 ML IV (07:28)
--- NOTE | 2022-08-25 07:56 | FALS_PTH ---
PATIENT: FARHAD DORADO LOC: WP U#:[id number] AGE/SX: 31/F ROOM: WP005 RE08/25/[address]: Dr. Prashant Gutiérrez MD : 1990 BED: 1 DIS: 08/26/2022 SPEC #: [id number] RECD: 08/25/22 09:56 STATUS: ANNETTE CHRISTOS #: [id number] RODERICK: 08/25/22 07:[address]: Prashant Gutiérrez DEPT: SURGICAL PATHOLOGY RECD BY: Thuy Verdugo ENTERED: 08/25/22 11:22 SP TYPE: FALL TUBES OTHR DR: Dr. Amador Owens MD Tissues: Fallopian tube Procedures: Surgery Specimen Level II HEADER OPERATION: Tubal ligation PRE-OP DIAGNOSIS: Desires sterilization TISSUE SUBMITTED: Fallopian tubes, right tube has stitch MICROSCOPIC DIAGNOSIS Bilateral fallopian tubes, salpingectomy: Bilateral fallopian tubes, no pathologic diagnosis. 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 See comment. LAKISHA:harriett 08/26/2022 COMMENT Immunohistochemistry ([id number]) supports the above diagnosis. Case has been reviewed in consultation with Dr. Barron who concurs with the above diagnosis. IDC:AM MICROSCOPIC DESCRIPTION Slides are reviewed. GROSS DESCRIPTION Received in fixative is one container labeled with the patient's name and designated bilateral fallopian tubes. The specimen consists of bilateral fallopian tubes including fimbrial ends each measuring 9.0 cm in length and 0.6 cm in diameter. The left fallopian tube also shows a paratubal cyst measuring 0.6 cm in greatest dimension. Candles Pourer sections are submitted in two cassettes as follows: 1 - right fallopian tube, 2 - left fallopian tube and paratubal cyst. / LAKISHA:harriett 08/25/2022 TC:5 CPT: 88709 x2, 62080
--- NOTE | 2022-08-25 08:36 | OP.PCM_ITS ---
Details Operative Information Date of Procedure: 08/25/22 Pre-Operative Diagnosis: Term, desires permanent sterilization, history of section Post-Operative Diagnosis: Term, history of section, desires primary sterilization Findings Description of Procedure: Procedure: Repeat low transverse section via Pfannenstiel incision, bilateral salpingectomy Surgeon: Prashant Gutiérrez MD Anesthesia: Spinal EBL: 700 cc Urine output: 200 cc IV fluids: 150 cc Complications: None Specimen: Bilateral fallopian tubes Findings: Female infant in vertex position Apgars 9/10. Normal uterus, tubes, and ovaries. Consent: Patient with history of section and desires permanent sterilization elects for repeat section Via Pfannenstiel incision and bilateral salpingectomy. Patient understands risk of the procedure include but are not limited to visceral or vascular injury, prolonged hospitalization, blood loss need for transfusion, reoperation. Patient state understanding wish to proceed. All questions were answered and consent was signed. Procedure: Patient was brought back to the OR where spinal anesthesia was found to be adequate. 2 g of Ancef were given for infection prophylaxis. Patient was prepared and draped in a dorsal supine position with leftward tilt. A Pfannenstiel incision was made at the skin with a scalpel. The incision was carried down to the fascia with scalpel. The fascia was excised and extended laterally. Inferior aspect of the fascia was grasped with a clamp and the underlying rectus and pyramidalis muscle were dissected off sharply with Pedro scissors. In similar fashion the superior aspect of the fascia was grasped with a clamp and the underlying rectus muscle was dissected off sharply. Rectus muscle was dissected at the midline down to the level of the pubic symphysis. Preperitoneal fatty tissue was noted and peritoneum was entered sharply. Peritoneum was extended superiorly and inferiorly with good visualization of bladder. Bladder blade was inserted and vesicouterine peritoneum was identified. Low transverse hysterotomy was made. Hand was placed into the incision and gentle fundal pressure was applied once the head was brought into the incision and the bladder blade was removed. Head and shoulders were delivered with ease. Cord was clamped and cut. Baby handed off to nursing. Placenta was delivered via cord traction and fundal massage. IV oxytocin was initiated in order to facilitate uterine contractions. Uterus was exteriorized and wiped out with dry laparotomy sponge in order to remove remaining placental membranes. Uterus was closed in continuous running fashion. [id number] sutures were used to achieve hemostasis. Right fallopian tube was identified to the fimbria and the mesosalpinx was cut and cauterized with a LigaSure device, fallopian tube was transected at the cornua and sent to pathology. In similar fashion the left fallopian tube was identified to the fimbria and the mesos alpinx was cut and cauterized with LigaSure device, left fallopian tube was transected at the cornua and sent to pathology. Good hemostasis was noted bilaterally. Uterus was placed back in the abdominal cavity and the incision was reinspected, good hemostasis was noted. Fascia was closed in continuous running fashion with PDS suture. Subcutaneous irrigation was performed and good hemostasis was noted. Skin was closed in subcuticular fashion. Good hemostasis was noted. All counts were correct x2. Patient tolerated procedure well and was brought to recovery in a stable condition.
[2022-08-25 09:04] LABS: Syphilis Antibodies Non-reactive
[2022-08-25] MEDS: Oxytocin 15 Units/NS 250ml 15 UNITS/250 ML IV.SOLN 83 UNITS IV (09:18)
[2022-08-25 10:07] LABS: Pathology Specimen OB SEE PATHOLOGY REPORT
[2022-08-25] MEDS: Lactated Ringers 1,000 ML 100 ML IV (12:42)
[2022-08-25] MEDS: Enoxaparin 40 MG/0.4 ML Syringe SC (20:36)
[2022-08-26 00:34] VITALS: BP 118/71; PULSE 98; RESP 16; TEMP 36.7; O2SAT 96
[2022-08-26 00:35] VITALS: BP 118/71; PULSE 98; RESP 16; TEMP 36.7; O2SAT 96
[2022-08-26] MEDS: Acetaminophen 500 MG Tablet 1000 MG PO ×2 (01:25→09:11)
[2022-08-26 03:45] VITALS: BP 129/76; PULSE 97; RESP 16; TEMP 36.4; O2SAT 98
[2022-08-26 04:38] LABS: Hemoglobin 9.9 g/dL (12.0-15.0); Mean Corp Hgb Conc 34.1 g/dL (32-36); Mean Corpuscular Hgb 31.5 pg (27.0-32.0); Mean Corpuscular Volume 92.4 fL (81-99); Mean Platelet Vol. 10.7 fl (6.2-12.0); Platelet Count 213 K/mm3 (150-450); Red Blood Count 3.14 M/mm3 (4.2-5.4); White Blood Count 7.3 K/mm3 (4.4-11.0)
[2022-08-26 05:01] LABS: ALB/GLOB Ratio 0.6 RATIO (0.9-2.4); AST(SGOT) 10 U/L (15-37); Alanine Aminotransfer ALT/SGPT 11 U/L (13-56); Alkaline Phosphatase 79 U/L (45-117); Anion Gap 3 (5-15); BUN 5 mg/dL (7-18); BUN/Creat Ratio 6.7 RATIO (10-20); Calcium,Total 7.8 mg/dL (8.5-10.1); Chloride 106 mmol/L (98-107); Creatinine, Serum 0.75 mg/dL (0.55-1.02); EST Glomerular Filtration Rate 96 mL/min (>60); Est Glom Filt Rate - Afr Amer 116 mL/min (>60); Estimated Creatinine Clearance 93.85 ml/min; Globulin 3.2 g/dL (2.2-4.2); Glucose 86 mg/dL (74-106); LDH 165 U/L (84-246); Potassium 3.9 mmol/L (3.5-5.1); Protein, Total 5.2 g/dL (6.4-8.2); Sodium Level 137 mmol/L (136-145)
--- NOTE | 2022-08-26 07:16 | PCM.PN.OB ---
Subjective Subjective Feeling well. Pain controlled. Lochia minimal. Formula feeding. Objective Data Objective Data Vital Signs: Vital Signs Temp Pulse Resp BP Pulse Ox O2 Del Method 97.5 F L 97 16 129/76 H 98 Room Air 08/26/22 03:45 08/26/22 03:45 08/26/22 03:45 08/26/22 03:45 08/26/22 03:45 08/26/22 03:45 Oxygen Delivery Method Room Air Weight: 93.5 kg Body Mass Index (BMI) 35.4 Intake & Output: Intake and Output for Last 24 Hours 08/24/22 08/25/22 08/26/22 23:59 23:59 23:59 Intake Total 3948.33 / 3948.33 Output Total 2450 / 2450 1325 / 1325 Balance 1498.33 / 1498.33 -1325 / -1325 Lab / Micro Data Attestation: I reviewed the patient's lab results. 08/26/22 04:25 08/26/22 04:25 Labs: Laboratory Results - last 24 hr 08/25/22 05:30: Syphilis Total Ab Non-reactive 08/26/22 04:25: WBC 7.3, RBC 3.14 L, Hgb 9.9 L, Hct 29.0 L, MCV 92.4, MCH 31.5, MCHC 34.1, RDW Std Deviation 50.0 H, RDW Coeff of Omkar 15.0 H, Plt Count 213, MPV 10.7, Sodium 137, Potassium 3.9, Chloride 106, Carbon Dioxide 28.0, Anion Gap 3 L, BUN 5 L, Creatinine 0.75, Estim Creat Clear Calc 93.85, Est GFR (MDRD) Af Amer 116, Est GFR (MDRD) Non-Af 96, BUN/Creatinine Ratio 6.7 L, Glucose 86, Calcium 7.8 L, Total Bilirubin 0.30, AST 10 L, ALT 11 L, Alkaline Phosphatase 79, Lactate Dehydrogenase 165, Total Protein 5.2 L, Albumin 2.0 L, Globulin 3.2, Albumin/Globulin Ratio 0.6 L Physical Exam Const alert, oriented x3 and no apparent distress HEENT normocephalic Head and Scalp: atraumatic Neck full ROM Resp normal respiratory effort Cardio regular rate GI soft to palpation, non-tender and non-distended GI Narrative: Uterus 2 cm below umbilicus, dressing clean and dry Back/Spine normal ROM Extremity normal to inspection Extremity Narrative: Minimal pedal edema Neuro no focal motor deficits and no sensory deficits noted Psych mental status grossly normal and affect normal Assessment & Plan (1) Acute postoperative pain: PLAN: Postop day 1 status post repeat section and bilateral salpingectomy. Complicated by acute blood loss anemia secondary to surgery. Patient also with preeclampsia without severe features. Blood pressures well controlled. Acute kidney injury, resolved today with hydration after surgery. Discharge home today with 1 week blood pressure follow-up in office in 2-week postop visit. Signs and symptoms of preeclampsia reviewed. (2) Preeclampsia: QUALIFIERS: Trimester: third trimester Qualified Code(s): O14.93 - Unspecified pre-eclampsia, third trimester (3) Delivery by section:
--- NOTE | 2022-08-26 07:19 | DCINST_ITS ---
Discharge Instructions Diet Discharge Diet: No restrictions Activity Discharge Activity: Return to Normal Activity and May Shower May resume sexual activity in: 4-6 weeks Weight Bearing Status: Weight bearing as tolerated Lifting Restrictions: No greater than 25 pounds Dressing / Incision Call your doctor if your incision/area has: Continuous Slow Oozing, Increased Redness and Swelling at the incision site Call your doctor if you observe: Fever of 101 or Higher, Change in Color, Inability to urinate, Using more than 1 pad per hour, Shortness of breath, Dizziness, Swelling in the ankles, Chest pain and Calf discomfort Remove Dressing in: 1 week Cleanse incision/area with: Soap & Water and Keep Dressing Clean & Dry Follow Up Care Please Follow Up With: Prashant Gutiérrez MD When: 1 week RN blood pressure check, 2-week post op and 6-week visit Test Results: Test results from this visit will be discussed in further detail at your follow- up appointment, if applicable. Discharge Plan Admission Admit Date/Time: 08/25/22 04:56 Primary Reason for Your Visit: Repeat section bilateral tubal ligation Attending Provider: Prashant Gutiérrez Primary Care Provider: Amador Owens Instructions Additional Instructions / Restrictions: Regular diet. Okay to shower. No tub baths for 2 weeks. No lifting over 25 pounds for 2 to 3 weeks. No intercourse for 6 to 8 weeks. Call if fevers, chills, chest pain, shortness of breath. Follow-up 2 weeks postoperative Discharge Orders/Prescriptions Prescriptions: New oxycodone 5 mg tablet 5 mg PO Q6H PRN (Reason: pain (scale score 7-10)) 4 Days Qty: 16 0RF Continued famotidine [Pepcid AC] 20 mg tablet 20 mg PO BID Fa 1 tab PO DAILY Referrals / Follow Up: Amador Owens MD [Primary Care Provider] - Disposition Disposition (needs filled in before D/C Order can be placed): Home, Self Care
[2022-08-26 08:45] VITALS: BP 108/69; PULSE 105; RESP 16; TEMP 36.7; O2SAT 98
[2022-08-26] MEDS: Senna/Docusate Sodium 1 Tablet PO (09:11)
[2022-08-26 13:51] VITALS: BP 134/89; PULSE 102; RESP 16; TEMP 36.6; O2SAT 97
--- NOTE | 2022-08-26 14:42 | CASEMGMT ---
Social Work Assessment Labor and Delivery Unit Patient Address:[place] [address] Phone number: [phone] Date of Referral: 08/26/22 Time of Referral:? 727 Referred By: Dr. Prashant Gutiérrez Date of Intervention: ??08/26/22 Time of Intervention:? 1319 Reason for Referral:? Mental health Sw completed chart review and acknowledges social work consult entered due to mental health. Sw presented to bedside, introduced self to mother of baby (INDRA- Brittany) and father of baby (KAREL- Emanuel). Sw explained reason for sw involvement. Sw completed psychosocial assessment, provided literature, education and ongoing support. History obtained from: medical records, MOB and FOB. Household composition: Currently residing in the family home is INDRA, KAREL, baby girl and older child, Milton (: 08/06/2020). Parents report that the home is safe and adequate. Patient's parent/guardian status:?MOB is 31 year old female. KAREL is 38 year old male. Parents met through mutual friends and have been together for 5 years. baby girl is second child to both parents. When meeting with INDRA privately she denies any domestic violence including intimate partner violence. Medical History: INDRA is 3, para 1 now 2. INDRA received routine care with [facility] beginning at beginning of . INDRA delivered baby on 08/25/22. Baby girl, Jose Neal weighed 7lb 1oz and her apgars were 9 and 10 at 1 and 5 minutes of life respectfully. Educational Status:?Both parents graduated from high school. Neither parent had difficulties learning or with comprehension. Financial Status: KAREL is gainfully employed outside of the home. He is employed for [employer]. KAREL states that he is often able to automotive production worker which is a good change from the last time they had a baby. 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 INDRA states that her work is just enough to keep her busy and provide a little extra income for their family. Infant Supplies:?Parents report they have obtained everything they need for baby including a safe sleep space, car seat,?clothes, diapers and wipes. Childcare/Caregiver(s):? MOB will be the primary caregiver to baby. MOB states that they have family members who offer to babysit so parents can still enjoy time together without the kids and go out to eat or run errands together. Transportation:?? Both parents have their drivers license and reliable transportation. No transportation barriers identified at this time. Programs/Agencies Involved: ?Parents deny involvement with community resources at this time. Sw discussed Help Me Grow and WIC. Parents are over income for WIC supports. ??INDRA is connected to counseling/ psychiatric supports on a monthly basis at this time. Children Services/Legal Issues:??Parents deny former Children Services involvement. No issues or concerns warranting referral to be made at this time. ? Behavioral Health Issues: ?? Mental Health History: KAREL denies mental health diagnoses. INDRA reports that she has been diagnosed with ADHD, anxiety and depression. MOB states that she did experience depression following the of her son two years ago. INDRA states that she did well with her mental health until her son was about four months old and then she started to experience feelings of rage that she would take out on her . MOB states that she never had thoughts of hurting herself or the baby, and she never abused her she would just get angry and take it out on him. INDRA states that she had a lot of work responsibilities on her at that time, and all of that has changed now. INDRA states that this time she is self employed and is hoping that she will not experience . INDRA completed [place] Depression Scale, her score was a 2. Sw provided education and support. ??? Substance Use History:?INDRA denies substances prior to or during . ? Family History:???INDRA states that her mom and sister both have a mental health history positive for anxiety and depression. MOB states that FOB mom also struggles with depression but she is not sure if she has officially been diagnosed or not. ?? Drug Screens: No urine screens observed in chart review. Family/Social Stressors:? MOB states that the only stressor she has at this time is her mental health. MOB states that she feels more prepared this time as she is aware of signs and symptoms to look for. MOB states that she has also gotten connected to supportive mental health supports to help her during this period. Support Systems: INDRA states that her parents and FOB parents are all extremely supportive. MOB states that she also has some friends who have had babies and they are all really good supports for each other as well. Depression/Shaken Baby/Safe Sleeping:?Sw provided literature and education on signs and symptoms to look for regarding baby blues and post depression. Sw provided education on shaken baby prevention and ABCs of safe sleep. Parents expressed understanding. ASSESSMENT:? MOB and FOB were polite and engaged during assessment. Both parents were observed to attend to baby lovingly while sw present in room. MOB was very talkative regarding her mental health history and things she has done to try to help prepare herself this time around. MOB states that FOB is a very strong support person for her and he knows how to help her recognize signs and symptoms of herself and when she is struggling. MOB aware of her susceptibility of experiencing baby blues/ depression due to her mental health history being positive for anxiety, depression and . Parents were receptive to sw involvement and support. Parents thanked sw for talking with them and resources that were provided. PLAN:? MOB and baby medically ready for discharge today. ?No other services requested or indicated. Amandeep Gomes, MISSILE INSPECTOR [employer], LIQUOR CLERK
== END 2022-08-26 13:55 | disposition home or self-care (01) | DRG 784 ==
PROVIDERS: Student in an Organized Health Care Education/Training Program; Admitting Provider Obstetrics & Gynecology; PCP Family Medicine; Referring Provider Obstetrics & Gynecology; Visit Provider Obstetrics & Gynecology
PROC: 0UT70ZZ Resection of Bilateral Fallopian Tubes, Open Approach (ICD-10-PCS; CPT 59514; principal; 2022-08-25 07:15)
DX: O34.211 Maternal care for low transverse scar from previous cesarean delivery (principal); D62 Acute posthemorrhagic anemia; O90.81 Anemia of the puerperium; O14.04 Mild to moderate pre-eclampsia, complicating childbirth; Z30.2 Encounter for sterilization; Z37.0 Single live birth; Z3A.39 39 weeks gestation of pregnancy; Z87.59 Personal history of other complications of pregnancy, childbirth and the puerperium
CPT/HCPCS: 59025; 59050; 80053; 82565; 82570; 83615; 84156; 84450; 84460; 84550; 85025; 85027; 86780; 86850; 86900; 86901; 88302; 88341; 88342; 99221; J7120; G0378; J2405

== ENCOUNTER → 2022-10-07 | Outpatient (CLI) | payer OTHER, SELFPAY ==
[2022-10-13 10:09] LABS: HPV APTIMA, High Risk Negative (Negative)
== END | disposition home or self-care (01) ==
LOC: WOBLAB 10:48
PROVIDERS: PCP Family Medicine; Visit Provider Student in an Organized Health Care Education/Training Program
DX: Z12.4 Encounter for screening for malignant neoplasm of cervix (principal)
CPT/HCPCS: 87624; 88175; G0145